=== PATIENT | female | born 1955 | race Caucasian/White ===

== ENCOUNTER 2018-01-21 07:52 | Day surgery (SDC) | payer OTHER ==
[2018-01-21 08:56] LABS: Basophils % (Auto) 0.6 % (0.0-1.8); Eosinophils # (Auto) 0.1 K/mm3 (0.0-0.4); Eosinophils % (Auto) 0.8 % (0.0-4.3); Hematocrit 39.7 % (30.3-42.9); Hemoglobin 13.5 gm/dl (10.1-14.3); Lymphocytes # (Auto) 2.4 K/mm3 (1.2-5.4); Lymphocytes % (Auto) 28.8 % (13.4-35.0); Mean Corpuscular HGB Conc 34 % (30-34); Mean Corpuscular Hemoglobin 30 pg (28-32); Mean Corpuscular Volume 88 fl (79-97); Monocytes # (Auto) 0.7 K/mm3 (0.0-0.8); Monocytes % (Auto) 8.2 % (0.0-7.3); Platelet Count 239 K/mm3 (140-440); Red Blood Count 4.53 M/mm3 (3.65-5.03); Red Cell Distribution Width 13.6 % (13.2-15.2)
[2018-01-21] MEDS ORDERED: NACL 0.9% 500 ML 500 ML IV SCH (09:00)
[2018-01-21 09:08] LABS: INR 0.93 (0.87-1.13)
[2018-01-21 09:12] LABS: BUN/Creatinine Ratio 28; Blood Urea Nitrogen 11 mg/dL (7-17); Calcium 9.4 mg/dL (8.4-10.2); Hemolysis Index 9
[2018-01-21] MEDS ORDERED: ECOTRIN PO ONE (09:30)
[2018-01-21] MEDS ORDERED: HEPARIN 10,000 UNITS/10 ML ONE (10:57)
[2018-01-21] MEDS ORDERED: VERSED ONE (10:57)
[2018-01-21] MEDS ORDERED: SUBLIMAZE ONE (10:57)
[2018-01-21] MEDS ORDERED: HEPARIN/NS 5000 UNIT/500ML(CATH LAB) 1,000 ML IR ONE (10:57)
[2018-01-21] MEDS ORDERED: CALAN ONE (10:58)
[2018-01-21] MEDS ORDERED: XYLOCAINE 2% INFILTRATI ONE (10:58)
[2018-01-21] MEDS ORDERED: NITROGLYCERIN SYRINGE 3 ML ONE (10:58)
--- NOTE | 2018-01-21 11:57 | Cardiac Catherization Report ---
REASON FOR TEST: Abnormal thallium stress test. PROCEDURE: 1. Left heart catheterization. 2. Selective left and right coronary angiography. 3. Left ventricular angiography. 4. Sedation time; start 11:22, end 11:35. DESCRIPTION OF PROCEDURE: The patient was prepped and draped in a sterile fashion after informed consent. The right radial cath site was prepped and draped after a negative Kimo's test. The right radial artery was entered using Seldinger technique followed by placement of a 6-Italian hydrophilic sheath. Routine radial cocktail was administered via the sheath. Selective left and right coronary angiography was performed, using a #3.5 left Cristian and a #4 right Cristian. The pigtail catheter was used for left ventricle angiography. Catheters were removed, sheath removed, and hemostasis achieved using a TR band. The patient was returned to the postprocedure unit in stable condition. There were no complications. FINDINGS: HEMODYNAMICS: Left ventricular end-diastolic pressure was 27, following coronary angiography. Ascending aortic pressure was 152/63. There was no significant pressure gradient on pullback across the aortic valve. CORONARY ANGIOGRAPHY: The left main coronary artery was angiographically normal. The left anterior descending artery and its diagonal branches were angiographically normal. The circumflex artery and its obtuse marginal branches were angiographically normal. The right coronary artery was dominant and similarly angiographically normal. Left ventricular systolic function was at the lower limits of normal, ejection fraction 50-55%. CONCLUSION: 1. Angiographically normal coronary arteries. 2. Normal left ventricular systolic function, ejection fraction 50-55%. RECOMMENDATION: Risk factor modification and medical therapy. JOB# [id number] CA/NTS
[2018-01-21] MEDS ORDERED: NACL 0.9% 1000 ML 1,000 ML IV SCH (13:00)
--- NOTE | 2018-01-21 13:00 | Discharge Summary ---
Short Stay Discharge Plan Activity: advance as tolerated Weight Bearing Status: Full Weight Bearing Diet: low fat, low cholesterol, low salt Wound: keep clean and dry Special Instructions: no heavy lifting (3 days) Follow up with: PRIMARY CARE, [Primary Care Provider] - 7 Days MARGARITO CRYSTAL MD [Staff Physician] - 7 Days
[2018-01-21 15:17] VITALS: BP 113/58
== END 2018-01-21 15:30 | disposition home or self-care (01) ==
LOC: CATHLABREC 07:52 → EDBD 07:52 → CATHLABREC 15:30
PROVIDERS: ATTEND Internal Medicine Cardiovascular Disease
DX: R94.39 Abnormal result of other cardiovascular function study (principal); F32.9 Major depressive disorder, single episode, unspecified; E78.00 Pure hypercholesterolemia, unspecified; K21.9 Gastro-esophageal reflux disease without esophagitis; I10 Essential (primary) hypertension; Z79.01 Long term (current) use of anticoagulants; Z79.82 Long term (current) use of aspirin; Z79.899 Other long term (current) drug therapy
CPT/HCPCS: 36415; 80048; 85025; 85610; 85730; 93005; 93010; 93458; 99156; 99157; C1894; J1644; J2250; J3010; J7040; Q9967